=== PATIENT | male | born 1965 | race Caucasian/White ===

== ENCOUNTER 2020-12-24 15:21 | Emergency (ER) | payer OTHER, SELFPAY ==
[2020-12-24 15:41] VITALS: BP 196/113; PULSE 98; RESP 16; TEMP 36.1; O2SAT 98; BMI 29.3
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
[2020-12-24] MEDS: Diphth,Pertus(ACell),Tet Adult 0.5 ML SYRINGE IM (17:17)
[2020-12-24] MEDS: Silver Sulfadiazine 1 % Cream 20 GM TUBE 1 APPL TOPICAL (17:18)
[2020-12-24 17:42] LABS: Anion Gap 20 (12-20); Blood Urea Nitrogen 10 mg/dL (9-16); Calcium 9.6 mg/dL (8.4-10.2); Carbon Dioxide 25 mmol/L (22-29); Chloride 102 mmol/L (96-108); Creatinine Clr Calc Pharmacy 100.8; Estimated Glomerular Filt Rate > 60; Glucose Random 93 mg/dL (60-115); Potassium 4.7 mmol/L (3.3-5.1); Sodium 142 mmol/L (135-145)
[2020-12-24 18:00] VITALS: BP 196/120; PULSE 76; RESP 16; O2SAT 96
[2020-12-24 18:15] VITALS: BP 196/120; PULSE 79
[2020-12-24] MEDS: lisinopriL 10 MG TABLET PO (18:15)
== END 2020-12-24 18:30 | disposition home or self-care (01) ==
PROVIDERS: Physician Assistant Medical; Emergency Provider Emergency Medicine
DX: T24.231A Burn of second degree of right lower leg, initial encounter (principal); T21.22XA Burn of second degree of abdominal wall, initial encounter; T31.0 Burns involving less than 10% of body surface; X17.XXXA Contact with hot engines, machinery and tools, initial encounter; I10 Essential (primary) hypertension; Y93.H2 Activity, gardening and landscaping; Y92.096 Garden or yard of other non-institutional residence as the place of occurrence of the external cause; Y99.0 Civilian activity done for income or pay
CPT/HCPCS: 36415; 80048; 90471; 90715; 99283; 99284

== ENCOUNTER 2020-12-30 11:31 | Emergency (ER) | payer OTHER, MEDICAID, SELFPAY ==
[2020-12-30 11:34] VITALS: BP 183/104; PULSE 97; RESP 16; TEMP 37.3; O2SAT 98; BMI 29.9
[2020-12-30 12:50] VITALS: BP 146/89; PULSE 97; RESP 16; O2SAT 95
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
[2020-12-30] MEDS: cephALEXin 500 MG CAPSULE PO (12:56)
== END 2020-12-30 13:20 | disposition home or self-care (01) ==
PROVIDERS: Emergency Provider Emergency Medicine Emergency Medical Services
DX: Z04.2 Encounter for examination and observation following work accident (principal); Z48.00 Encounter for change or removal of nonsurgical wound dressing; T21.22XD Burn of second degree of abdominal wall, subsequent encounter; X08.8XXD Exposure to other specified smoke, fire and flames, subsequent encounter; I10 Essential (primary) hypertension
CPT/HCPCS: 99283; 99284

== ENCOUNTER 2021-04-04 05:47 | Emergency (ER) | payer OTHER, MEDICAID, SELFPAY ==
--- NOTE | ~2021-04-04 | XR_ITS ---
EXAMINATION: XR KNEE, RIGHT CLINICAL INFORMATION: Fall, pain COMPARISON: None TECHNIQUE: Four views of the right knee. FINDINGS: No radiographic evidence of acute fracture subluxation. Minimal degenerative marginal osteophytes of the patellofemoral and lateral compartments. Medial compartment narrowing. Small joint effusion. 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
[2021-04-04 05:57] VITALS: BP 159/98; PULSE 86; RESP 16; TEMP 36.6; O2SAT 99; BMI 30.6
[2021-04-04 06:19] VITALS: BP 153/91; PULSE 86; RESP 16; TEMP 36.9; O2SAT 98
--- NOTE | 2021-04-04 06:50 | ED.FALL ---
HPI - Fall General Chief Complaint: Fall Stated Complaint: knee injury/work inj Time Seen by Provider: 04/04/21 06:25 Source: patient Mode of arrival: ambulatory Limitations: no limitations History of Present Illness HPI Narrative: Patient comes to the emergency room complaining of right-sided knee pain. Patient states he works in [employer], patient was at work, slipped, fell on his butt but believes that his knee bent awkwardly. Patient states that since yesterday he has been able to bear weight, his whole knee hurts but is able to flex extend and bear weight. Patient states he has not taking any pain medication since this happened. Patient denies hitting his head, no loss of consciousness, not on blood thinners Related Data Previous Rx's Medication Instructions Recorded lisinopril 10 mg tablet 10 mg PO DAILY #30 tab 12/24/20 silver sulfadiazine 1 % topical 1 appl TOPICAL DAILY #50 g 12/24/20 cream (Silvadene) cephalexin 500 mg capsule 500 mg PO QID 7 Days #28 cap 12/30/20 lisinopril 10 mg tablet 10 mg PO DAILY #90 tab 04/04/21 Allergies Allergy/AdvReac Type Severity Reaction Status Date / Time No Known Allergies Allergy Unverified 12/30/20 11:42 [No Known Allergies*] Review of Systems Review of Systems: Constitutional : No Weight loss, No Fever, No Chills, No Night Sweats, No Fatigue, No Malaise ENT/Mouth : No Hearing loss, No Ear Pain, No Nasal Congestion, No Sinus Pain, No Hoarseness, No sore throat, No Rhinorrhea, No Swallowing Difficulty Eyes: No Eye Pain, No Swelling, No Redness, No Foreign Body, No Discharge, No Vision Changes Cardiovascular : No Chest Pain, No SOB, No Dyspnea on Exertion, No Orthopnea, No Edema, No Palpitations Respiratory : No Cough, No Sputum, No Wheezing, No Smoke Exposure, No Dyspnea Gastrointestinal : No Nausea, No Vomiting, No Diarrhea, No Constipation, No abdominal Pain, No Hematochezia, No Melena Genitourinary : no irregular bleeding, No Dysuria, No Urinary Frequency, No Hematuria, No Urinary Incontinence, No Urgency, No Flank Pain, No Urinary Flow Changes, No Hesitancy Musculoskeletal : Complaining of any pain, No Myalgias, No Joint Swelling Skin : No Skin Lesions, No rash Neuro : No Weakness, No Numbness, No Paresthesias, No Loss of Consciousness, No Dizziness, No Headache Psych : No Anxiety/Panic, No Depression, No SI/HI/AH/VH, No Social Issues, Heme/Lymph: No Bruising, No Bleeding,No Lymphadenopathy Endocrine : No Polyuria, No Polydipsia, No Temperature Intolerance [facility] Social History Social History Patient Tobacco Use Status: Never used Tobacco Advance Directives: No Advance Directives Information Provided: Yes Physical Exam Vital Signs: Vital Signs: Last Vital Signs Temp 98.5 F 04/04/21 06:19 Pulse 86 04/04/21 06:19 Resp 16 04/04/21 06:19 BP 153/91 H 04/04/21 06:19 Pulse Ox 98 04/04/21 06:19 Body Mass Index 30.6 Const: Other: Appearance: Alert. Oriented X3. No acute distress. Eyes: Pupils equal, round and reactive to light. ENT: Pharynx normal. Neck: Normal inspection. Neck supple. No lymph nodes noted. No crepitus CVS: Normal heart rate and rhythm. Pulses normal. Normal S1 and S2 Respiratory: No respiratory distress. Breath sounds normal. No Wheezing. No rales Abdomen: Soft and nontender. No rigidity. No distention. good BS x4 Skin: Skin warm and dry. Normal skin color. Normal skin turgor. Extremities: No lower extremity edema. Right knee is mildly swollen, no obvious effusion. No discoloration, no skin injury. Joint is not erythematous, or warm to touch, patient is able to flex and extend the knee, able to bear weight. Negative anterior and posterior drawer test, negative Piper's test, negative Lachmans test, negative valgus/varus test Neuro: Oriented X 3. No motor deficit. No sensory deficit. Moving all extermities. No slurred speech. Course Course Course Narrative: I discussed the physical exam with the patient, patient likely has a contusion rather than a meniscal/ligamentous injury. Patient will follow-up with a new primary care physician. Patient states that he ran out of his lisinopril, takes 10 mg daily. Patient requesting a refill. Patient does not have a primary care physician MDM - Fall Imaging Data Knee x-ray: Radiologist's impression: No radiographic evidence of acute fracture subluxation. Minimal degenerative marginal osteophytes of the patellofemoral and lateral compartments. Medial compartment narrowing. Small joint effusion.? 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 Discharge Plan Discharge Clinical Impression: Acute knee pain Qualifiers: Laterality: right Qualified Code(s): M25.561 - Pain in right knee Patient Disposition: Home, Self-Care Instructions: Knee Pain (ED), Patellofemoral Pain Syndrome Exercises (ED) Additional Instructions: Please follow-up with your primary care physician tomorrow. If you have any worsening or new symptoms, please return to the emergency room or call 911 Prescriptions: New lisinopril 10 mg tablet 10 mg PO DAILY Qty: 90 RF: 1 No Action cephalexin 500 mg capsule 500 mg PO QID 7 Days Qty: 28 RF: 0 lisinopril 10 mg tablet 10 mg PO DAILY Qty: 30 RF: 0 silver sulfadiazine [Silvadene] 1 % cream 1 appl topical DAILY Qty: 50 RF: 0
== END 2021-04-04 08:26 | disposition home or self-care (01) ==
PROVIDERS: Emergency Provider Emergency Medicine
DX: M25.561 Pain in right knee (principal); Z79.899 Other long term (current) drug therapy
CPT/HCPCS: 73562; 99283

== ENCOUNTER 2021-10-10 15:55 | Emergency (ER) | payer MEDICAID, SELFPAY ==
--- NOTE | ~2021-10-10 | CT_ITS ---
EXAMINATION: CT head/brain wo con, CT cervical spine wo con INDICATION INFORMATION: Reason for Exam fall, ETOH COMPARISON: Trauma TECHNIQUE: Separate noncontrast CT examinations of the head and cervical spine were performed. Coronal and sagittal images were created for each examination at the technologist workstation. This CT examination was performed using dose optimization techniques as appropriate, variously including the following: *Automated exposure control *Adjustment of mA and/or kV according to patient size (this includes techniques or standardized protocols for targeted exams where dose is matched to indication/reason for exam; i.e. extremities or head) *Use of iterative reconstruction technique DLP: 941.26 mGy-cm FINDINGS: Head: No acute osseous or soft tissue abnormality. The mastoid air cells and visualized portions of the paranasal sinuses are well aerated. There is no evidence of acute intracranial hemorrhage or territorial infarction. No abnormal mass effect or midline shift is seen. Frank to white matter differentiation is well preserved. No extra-axial fluid collections are identified. No hydrocephalus. Cervical spine: There is no evidence of acute cervical spine fracture. Vertebral bodies remain normal in height. Alignment is maintained. Multilevel loss of disc space height. No pre- or paravertebral soft tissue abnormality is identified. Visualized portions of the lung apices are unremarkable. The thyroid gland is unremarkable. CT/CT cervical spine wo con IMPRESSION: 1. No acute intracranial abnormality. 2. No cervical spine fracture or traumatic malalignment.
--- NOTE | ~2021-10-10 | CT_ITS ---
EXAMINATION: CT head/brain wo con, CT cervical spine wo con INDICATION INFORMATION: Reason for Exam fall, ETOH COMPARISON: Trauma TECHNIQUE: Separate noncontrast CT examinations of the head and cervical spine were performed. Coronal and sagittal images were created for each examination at the technologist workstation. This CT examination was performed using dose optimization techniques as appropriate, variously including the following: *Automated exposure control *Adjustment of mA and/or kV according to patient size (this includes techniques or standardized protocols for targeted exams where dose is matched to indication/reason for exam; i.e. extremities or head) *Use of iterative reconstruction technique DLP: 941.26 mGy-cm FINDINGS: Head: No acute osseous or soft tissue abnormality. The mastoid air cells and visualized portions of the paranasal sinuses are well aerated. There is no evidence of acute intracranial hemorrhage or territorial infarction. No abnormal mass effect or midline shift is seen. Frank to white matter differentiation is well preserved. No extra-axial fluid collections are identified. No hydrocephalus. Cervical spine: There is no evidence of acute cervical spine fracture. Vertebral bodies remain normal in height. Alignment is maintained. Multilevel loss of disc space height. No pre- or paravertebral soft tissue abnormality is identified. Visualized portions of the lung apices are unremarkable. The thyroid gland is unremarkable. CT/CT head/brain wo con IMPRESSION: 1. No acute intracranial abnormality. 2. No cervical spine fracture or traumatic malalignment.
[2021-10-10 16:15] VITALS: BP 138/91; BP 150/99; PULSE 89; PULSE 99; RESP 18; TEMP 36.6; O2SAT 97; O2SAT 99; BMI 32.2
--- NOTE | 2021-10-10 16:18 | ED_ITS ---
HPI - Fall General Chief Complaint: ETOH/Substance Use Stated Complaint: trip and fall, etoh Time Seen by Provider: 10/10/21 16:16 Source: patient Mode of arrival: EMS Limitations: no limitations History of Present Illness HPI Narrative: Patient is a 56-year-old male being evaluated in the emergency department after a fall. Patient was found by his neighbors to be lying on the ground outside. Patient endorses having multiple concerns today including beer and shots. Upon getting home he slipped outside on a deck, was found lying on his left side in the snow. Upon EMS arrival he had no complaints. Unknown whether LOC occurred. Patient has abrasions to left side of face and left hand. He currently denies headache, neck pain, numbness or tingling of the arms or the legs, extremity pain, chest pain, palpitations, shortness of breath, difficulty breathing. MD complaint: fall Onset (ago): hour(s) Fall from: standing Fall witnessed: no Place fall occurred: street Loss of consciousness: unsure Context: alcohol use Related Data Previous Rx's Medication Instructions Recorded lisinopril 10 mg tablet 10 mg PO DAILY #30 tab 12/24/20 silver sulfadiazine 1 % topical 1 appl TOPICAL DAILY #50 g 12/24/20 cream (Silvadene) cephalexin 500 mg capsule 500 mg PO QID 7 Days #28 cap 12/30/20 lisinopril 10 mg tablet 10 mg PO DAILY #90 tab 04/04/21 Allergies Allergy/AdvReac Type Severity Reaction Status Date / Time No Known Allergies Allergy Unverified 12/30/20 11:42 [No Known Allergies*] Review of Systems Review of Systems: Constitutional: No weight loss, fever, chills, weakness or fatigue. HEENT: No visual loss, blurred vision, double vision or yellow sclera. No hearing loss, sneezing, congestion, runny nose or sore throat. Skin: No rash or itching. Cardiovascular: No chest pain, chest pressure or chest discomfort. No palpitations or pedal edema. Respiratory: No shortness of breath, cough or sputum production. Gastrointestinal: No anorexia, nausea, vomiting or diarrhea. No abdominal pain or blood in stool. Genitourinary: No burning micturition. No urinary frequency or incontinence. Neurologic: No headache, dizziness, syncope, unilateral weakness, ataxia, numbness or tingling in the extremities. No change in bowel or bladder control. Musculoskeletal: No muscle pain, back pain, joint pain or stiffness. Hematologic: No bleeding or bruising. Lymphatics: No enlarged lymph nodes. Psychiatric:No depression or anxiety. Endocrine: No polyuria or polydipsia. [facility] Social History Social History Alcohol intake: current Alcohol intake frequency: 0-2 drinks per day Alcohol type: beer and hard liquor Patient Tobacco Use Status: Never used Tobacco Use of substances other than those prescribed or required for medical reasons: No Advance Directives: No Advance Directives Information Provided: No Physical Exam Vital Signs: Vital Signs: Last Vital Signs Temp 98 F 10/10/21 16:15 Pulse 89 10/10/21 16:15 Resp 18 10/10/21 16:15 BP 138/91 H 10/10/21 16:15 Pulse Ox 97 10/10/21 16:15 BMI result Body Mass Index 32.2 Vital signs have been reviewed as normal and appeared to be correct. Blood pressure normal.? Heart rate normal.? Respiration rate normal. Temperature norm al.? Oxygen saturation normal. Appearance: Alert.?Oriented to person, place and time. Clinically appears intoxicated Eyes: Pupils equal, round and reactive to light.? Horizontal nystagmus with leftward gaze ENT: Pharynx normal.?? Neck: Normal inspection.? Neck supple.??No palpable midline tenderness, step- offs, deformities Back: No palpable midline tenderness, step-offs, deformities CVS: Heart sounds normal. Normal heart rate and rhythm.? Pulses normal.?? Respiratory: No respiratory distress.? Lung sounds clear to auscultation bilaterally?? Abdomen: Soft and non-tender. Normoactive bowel sounds. No pulsatile mass.?? Skin: Skin warm and dry.? Normal skin color.? Normal skin turgor.??Abrasion to left temporal region, abrasions over left Dorsal hand Extremities: No lower extremity edema.? No calf ttp. Full AROM to bilateral arms and legs Neuro: Moves all extremities spontaneously. Sensation intact bilaterally. CN II- XII intact. No focal neuro deficits. Nonambulatory at the time of initial exam Course Course Course Narrative: Patient is a 56-year-old male being evaluated after a fall while under the influence of alcohol. Will obtain CT of the head and neck to exclude ICH, SAH, fracture, dislocation. Will obtain basic labs including ethanol level drug of abuse screen. He is hemodynamically stable, afebrile, no tachycardia, no hypoxia, tachypnea or depressed respiratory drive. He is slow to respond to questions and speech is slurred but is responding appropriately. Maintaining airway managing secretions. Reevaluation(s) Reevaluation #1: Alcohol level was 364, urinalysis positive for cocaine. CBC, BMP are unremarkable. CT head and CT cervical spine normal, negative for acute fractures, dislocation. Hard cervical spine collar cleared. Patient attempted to call a friend for a ride home. Clinically, remains intoxicated at this time. Time: 18:30 Reevaluation #2: Patient ambulating with slow steady gait. Moving all extremities appropriately. Contacted his brother for a ride home, who presented to the emergency department. Patient's brother is agreeable to take him home at this time. Time: 19:26 MDM - Fall Medical Records Attestation: I reviewed the patient's medical records. Lab Data Result diagrams: 10/10/21 16:30 10/10/21 16:30 Labs: Lab Results 10/10/21 10/10/21 10/10/21 Range/Units 16:30 16:30 16:30 WBC 5.2 (4.8-10.8) X10*3/uL RBC 4.44 L (4.60-5.80) X10*6/uL Hgb 16.4 (14.0-18.0) g/dl Hct 47.1 (42.0-52.0) % MCV 106.1 H (80.0-98.0) fL MCH 36.9 H (27.0-33.0) pg MCHC 34.8 (31.0-36.0) g/dl RDW 13.2 (11.0-16.0) % Plt Count 222 (160-400) X10*3/uL MPV 8.5 L (9.4-12.4) fL Immature Gran % (Auto) 0.8 H (0.0-0.4) % Neut % (Auto) 63.2 (45-73) % Lymph % (Auto) 23.7 (20-40) % [place] % (Auto) 8.9 (2-11) % Eos % (Auto) 1.7 (0-4) % Baso % (Auto) 1.7 (0-2) % Lymph # (Auto) 1.2 (1.2-4.9) X10*3/uL [place] # (Auto) 0.5 (0.1-1.2) X10*3/uL Eos # (Auto) 0.1 (0.0-0.4) X10*3/uL Baso # (Auto) 0.1 (0.0-0.2) X10*3/uL Abs Immat Gran (auto) 0.04 H (0.00-0.03) X10*3/uL Absolute Neuts (auto) 3.3 (2.0-8.3) x10*3/uL Absolute Nucleated RBC 0.000 (0.0-0.012) X10*3/uL Nucleated RBC % (auto) 0.0 (0.0-0.2) /100WBC Sodium 136 (135-145) mmol/L Potassium 4.9 (3.3-5.1) mmol/L Chloride 98 (96-108) mmol/L Carbon Dioxide 29 (22-29) mmol/L Anion Gap 14 (12-20) BUN 12 (9-16) mg/dL Creatinine 1.15 (0.5-1.4) mg/dL Estim Creat Clear Calc 97.6 Estimated GFR > 60 Random Glucose 106 (60-115) mg/dL Calcium 9.8 (8.4-10.2) mg/dL Urine Opiates Screen (Not Detect) Urine Fentanyl Screen (Not Detect) Ur Barbiturates Screen (Not Detect) Ur Phencyclidine Scrn (Not Detect) Ur Amphetamines Screen (Not Detect) U Benzodiazepines Scrn (Not Detect) Urine Cocaine Screen (Not Detect) U Marijuana (THC) Screen (Not Detect) Ethyl Alcohol 364 H* mg/dL 10/10/21 Range/Units 18:18 WBC (4.8-10.8) X10*3/uL RBC (4.60-5.80) X10*6/uL Hgb (14.0-18.0) g/dl Hct (42.0-52.0) % MCV (80.0-98.0) fL MCH (27.0-33.0) pg MCHC (31.0-36.0) g/dl RDW (11.0-16.0) % Plt Count (160-400) X10*3/uL MPV (9.4-12.4) fL Immature Gran % (Auto) (0.0-0.4) % Neut % (Auto) (45-73) % Lymph % (Auto) (20-40) % [place] % (Auto) (2-11) % Eos % (Auto) (0-4) % Baso % (Auto) (0-2) % Lymph # (Auto) (1.2-4.9) X10*3/uL [place] # (Auto) (0.1-1.2) X10*3/uL Eos # (Auto) (0.0-0.4) X10*3/uL Baso # (Auto) (0.0-0.2) X10*3/uL Abs Immat Gran (auto) (0.00-0.03) X10*3/uL Absolute Neuts (auto) (2.0-8.3) x10*3/uL Absolute Nucleated RBC (0.0-0.012) X10*3/uL Nucleated RBC % (auto) (0.0-0.2) /100WBC Sodium (135-145) mmol/L Potassium (3.3-5.1) mmol/L Chloride (96-108) mmol/L Carbon Dioxide (22-29) mmol/L Anion Gap (12-20) BUN (9-16) mg/dL Creatinine (0.5-1.4) mg/dL Estim Creat Clear Calc Estimated GFR Random Glucose (60-115) mg/dL Calcium (8.4-10.2) mg/dL Urine Opiates Screen Not Detected (Not Detect) Urine Fentanyl Screen Not Detected (Not Detect) Ur Barbiturates Screen Not Detected (Not Detect) Ur Phencyclidine Scrn Not Detected (Not Detect) Ur Amphetamines Screen Not Detected (Not Detect) U Benzodiazepines Scrn Not Detected (Not Detect) Urine Cocaine Screen POSITIVE H (Not Detect) U Marijuana (THC) Screen Not Detected (Not Detect) Ethyl Alcohol mg/dL Imaging Data CT scan - head: Radiologist's impression: CT/CT cervical spine wo con IMPRESSION: ? 1.? No acute intracranial abnormality. ? 2.? No cervical spine fracture or traumatic malalignment. Discharge Plan Discharge Clinical Impression: Alcoholic intoxication, Fall Patient Disposition: Home, Self-Care Instructions: Abuse of Alcohol (ED), Fall Prevention (ED) Additional Instructions: You were evaluated in the emergency department today after a fall. Please refrain from excessive alcohol consumption, this may be due to increased risk for falls in the future. Future falls put you at risk for head injury, bleeding, and life-threatening injuries. You may return to the emergency department for any new or worsening symptoms or concerns Prescriptions: No Action cephalexin 500 mg capsule 500 mg PO QID 7 Days Qty: 28 0RF lisinopril 10 mg tablet 10 mg PO DAILY Qty: 30 0RF silver sulfadiazine [Silvadene] 1 % cream 1 appl topical DAILY Qty: 50 0RF Rx Instructions: apply a 1.5 mm thickness lisinopril 10 mg tablet 10 mg PO DAILY Qty: 90 1RF Interventions: ED Discharge Assessment Last Done: 10/10/21 19:44 Discharge Date/Time: 10/10/21 19:45
[2021-10-10 16:35] LABS: MANUAL DIFF FLAG NO
[2021-10-10 16:37] LABS: Basophils Absolute Auto 0.1 X10*3/uL (0.0-0.2); Basophils Percent Auto 1.7 % (0-2); Eosinophils Absolute Auto 0.1 X10*3/uL (0.0-0.4); Eosinophils Percent Auto 1.7 % (0-4); Hematocrit 47.1 % (42.0-52.0); Hemoglobin 16.4 g/dl (14.0-18.0); Imm Gran Abs Auto 0.04 X10*3/uL (0.00-0.03); Imm Gran Pct Auto 0.8 % (0.0-0.4); Lymphocytes Absolute Auto 1.2 X10*3/uL (1.2-4.9); Lymphocytes Percent Auto 23.7 % (20-40); Mean Corpuscular HGB Conc 34.8 g/dl (31.0-36.0); Mean Corpuscular Hemoglobin 36.9 pg (27.0-33.0); Mean Corpuscular Volume 106.1 fL (80.0-98.0); Mean Platelet Volume 8.5 fL (9.4-12.4); Monocytes Absolute Auto 0.5 X10*3/uL (0.1-1.2); Monocytes Percent Auto 8.9 % (2-11); Neutrophils Absolute Auto 3.3 x10*3/uL (2.0-8.3); Neutrophils Percent Auto 63.2 % (45-73); Platelet Count 222 X10*3/uL (160-400); Red Blood Count 4.44 X10*6/uL (4.60-5.80); Red Cell Distribution Width 13.2 % (11.0-16.0); White Blood Count 5.2 X10*3/uL (4.8-10.8)
[2021-10-10 16:53] LABS: Ethanol 364 mg/dL
[2021-10-10 16:55] LABS: Anion Gap 14 (12-20); Blood Urea Nitrogen 12 mg/dL (9-16); Calcium 9.8 mg/dL (8.4-10.2); Carbon Dioxide 29 mmol/L (22-29); Chloride 98 mmol/L (96-108); Creatinine Clr Calc Pharmacy 97.6; Estimated Glomerular Filt Rate > 60; Glucose Random 106 mg/dL (60-115); Potassium 4.9 mmol/L (3.3-5.1); Sodium 136 mmol/L (135-145)
[2021-10-10 18:44] LABS: Amphetamine Screen Urine Not Detected (Not Detect); Barbiturates, Urine Not Detected (Not Detect); Benzodiazepines Screen Urine Not Detected (Not Detect); Cannabinoid Screen Urine Not Detected (Not Detect); Cocaine Screen Urine POSITIVE (Not Detect); Fentanyl, urine Not Detected (Not Detect); Opiate Screen Urine Not Detected (Not Detect); Phencyclidine Screen Urine Not Detected (Not Detect)
--- NOTE | 2021-10-10 19:12 | PC.NURSE ---
Patient is getting a sober ride home from his brother.
== END 2021-10-10 19:45 | disposition home or self-care (01) ==
PROVIDERS: Nurse Practitioner Family; Emergency Provider Emergency Medicine Emergency Medical Services
DX: F10.129 Alcohol abuse with intoxication, unspecified (principal); Y90.8 Blood alcohol level of 240 mg/100 ml or more; Z91.81 History of falling
CPT/HCPCS: 36415; 70450; 72125; 80048; 80307; 82077; 85025; 99284; 99285

== ENCOUNTER 2021-10-13 07:48 | Emergency (ER) | payer MEDICAID, SELFPAY ==
--- NOTE | ~2021-10-13 | CT_ITS ---
EXAMINATION: CT ABDOMEN AND PELVIS WITH CONTRAST CLINICAL INFORMATION: Multiple rib fractures. Rule out liver/splenic hematoma. COMPARISON: Correlation CT chest 10/13/2021 TECHNIQUE: Multidetector volumetric images were obtained from the superior aspect of the liver through the pubic symphysis following administration 85 mL of Omnipaque 350 intravenous contrast. Sagittal and coronal reformatted images were obtained on the technologist's workstation. This CT examination was performed using dose optimization techniques as appropriate, variously including the following: *Automated exposure control *Adjustment of mA and/or kV according to patient size (this includes techniques or standardized protocols for targeted exams where dose is matched to indication/reason for exam; i.e. extremities or head) *Use of iterative reconstruction technique DLP: 796 mGy-cm FINDINGS: LUNG BASES: The visualized lung bases are clear.. LIVER, GALLBLADDER, AND BILIARY TREE: Enlarged liver right liver spanning 18.9 cm. Low-attenuation liver suggesting hepatic steatosis. No focal lesion seen. No findings to suggest laceration. No perihepatic hematoma/fluid seen. The gallbladder is unremarkable with no evidence of radiopaque gallstones, gallbladder wall thickening, or obvious pericholecystic inflammatory changes. PANCREAS: Unremarkable. No acute inflammatory changes. SPLEEN: Normal enhancement. No laceration is identified. No perisplenic fluid or hematoma seen. ADRENAL GLANDS: Unremarkable. KIDNEYS AND URETERS: The kidneys are normal in size, shape, and attenuation. No hydronephrosis, hydroureter, or calculi seen. Minimal perinephric stranding. Small subcentimeter right renal lesion, too small to characterize, statistically probably cysts.. BLADDER: Unremarkable. GASTROINTESTINAL TRACT: The small and large bowel are unremarkable. Stomach is partially distended. The appendix is unremarkable. No free fluid. No free air. ABDOMINAL WALL: Small umbilical hernia containing fat. Small left inguinal hernia containing fat. LYMPH NODES: No pathologically enlarged lymph nodes are seen. VASCULAR: Normal caliber aorta. Hepatic and portal veins are enhancing. PELVIC VISCERA: Prostate measures 4.7 cm transverse. Small calcifications. Seminal vesicles appear unremarkable. OSSEOUS STRUCTURES: Mild spondylosis in the visualized spine. No evidence of acute fracture. See chest CT report for rib fracture findings. CT/CT abdomen pelvis w con IMPRESSION: 1. Hepatomegaly. Findings suggest hepatic steatosis. 2. No CT findings to suggest hepatic or splenic injury, or evidence of subjacent fluid or hematoma. 3. Additional findings and details as above. Fleischner guidelines were followed.
--- NOTE | ~2021-10-13 | CT_ITS ---
EXAMINATION: CT CHEST WITHOUT CONTRAST CLINICAL INFORMATION: Severe left chest pain. Status post fall. COMPARISON: None TECHNIQUE: Multidetector volumetric CT imaging of the chest was done. Axial MIP volume rendering provided. Sagittal and coronal reformatted images were obtained. This CT examination was performed using dose optimization techniques as appropriate, variously including the following: *Automated exposure control *Adjustment of mA and/or kV according to patient size (this includes techniques or standardized protocols for targeted exams where dose is matched to indication/reason for exam; i.e. extremities or head) *Use of iterative reconstruction technique DLP: 542 mGy-cm FINDINGS: Mediastinum: No abnormal mediastinal fluid collections. Normal caliber and contour of the thoracic aorta. Normal caliber of the main and central pulmonary arteries. Partially visualized minimal scattered coronary artery calcific atherosclerosis. Normal heart size. No pericardial effusions. No new sternal lymphadenopathy. Lungs and pleura: Minimal biapical reticular nodular pleural parenchymal scarring of the lungs. No pulmonary consolidation. No pleural effusions. No pneumothoraces. CHEST WALL: No axillary lymphadenopathy. Mild bilateral gynecomastia. Mild left pectoral subcutaneous soft tissue reticulation is noted and is suspicious for acute soft tissue inflammatory changes (series 3 image 25. Osseous structures: Minimally displaced fractures of the anterior segment of the left third through fifth ribs. Minimal multilevel anterior endplate osteophytosis of the thoracic spine. No thoracic vertebral body compression deformities. Intact sternum. No rib fractures identified. Insight visualized abdominal structures: Diffuse low density of the liver is present relative to the spleen suspicious for diffuse hepatic steatosis. The adrenal glands are normal in appearance. Liver is normal in size and capsular contour. Grossly normal appearance of the gallbladder. Normal appearance of the pancreas and spleen. Kidneys demonstrate no hydronephrosis or nephrolithiasis. CT/CT chest wo con IMPRESSION: *Minimally displaced fracture of the anterior segment of the left third through fifth ribs with mild adjacent left pectoral subcutaneous soft tissue inflammatory changes. No pleural effusions or pneumothoraces. *Mild bilateral gynecomastia. *Partially visualized minimal coronary artery calcific atherosclerosis. *Diffuse hepatic steatosis.
[2021-10-13 07:51] VITALS: BP 197/107; PULSE 94; RESP 16; TEMP 37.2; O2SAT 98; BMI 30.6
--- NOTE | 2021-10-13 08:07 | PC.NURSE ---
LS CTA bilaterally, pt reports pain on inspiration. Provider in to bedside for primary eval, plan for chest CT AND ekg at this time.
--- NOTE | 2021-10-13 08:10 | ECG_ITS ---
Test Reason : Chest pain Blood Pressure : / mmHG Vent. Rate : 082 BPM Atrial Rate : 082 BPM P-R Int : 184 ms QRS Dur : 104 ms QT Int : 372 ms P-R-T Axes : 034 013 024 degrees QTc Int : 434 ms Normal sinus rhythm Minimal voltage criteria for LVH, may be normal variant ( R in aVL ) Inferior infarct , age undetermined Cannot rule out Anterior infarct , age undetermined Abnormal ECG No previous ECGs available Referred By: Goldie Francisco Electronically Signed By:TUNDE YU MD
--- NOTE | 2021-10-13 08:18 | ED.GENADULT ---
HPI - General Adult General Chief complaint: General Medical Stated complaint: pain ribs on left side Time Seen by Provider: 10/13/21 08:10 Source: patient Mode of arrival: ambulatory Limitations: no limitations History of Present Illness HPI narrative: 56-year-old male came in for evaluation of left chest wall pain after a fall. 56-year-old male seen and evaluated 3 days ago in the emergency department after tripped and fell while intoxicated with alcohol, patient started having gradual onset of left-sided chest wall pain increased with breathing, nail radiation of the pain, patient do not feel dizzy or headache. No abdominal pain. No blood noted in the urine. Patient had CT head and neck which was unremarkable for any trauma. Patient also complaining of left upper extremity pain and tenderness. Related Data Previous Rx's Medication Instructions Recorded lisinopril 10 mg tablet 10 mg PO DAILY #30 tab 12/24/20 silver sulfadiazine 1 % topical 1 appl TOPICAL DAILY #50 g 12/24/20 cream (Silvadene) cephalexin 500 mg capsule 500 mg PO QID 7 Days #28 cap 12/30/20 lisinopril 10 mg tablet 10 mg PO DAILY #90 tab 04/04/21 oxycodone 5 mg tablet 5 mg PO Q8H PRN #10 tab 10/13/21 Allergies Allergy/AdvReac Type Severity Reaction Status Date / Time No Known Allergies Allergy Unverified 12/30/20 11:42 [No Known Allergies*] Review of Systems Review of Systems: All other systems are reviewed and are negative Constitutional: Reports as per HPI and Reports no additional constitutional complaints Eyes: Reports as per HPI and Reports no additional eye complaints Reports system reviewed and no additional complaints, except as documented Cardiovascular: Reports as per HPI and Reports no additional cardiovascular complaints Respiratory: Reports as per HPI and Reports no additional respiratory complaints Gastrointestinal: Reports as per HPI and Reports no additional gastrointestinal complaints Genitourinary: Reports no additional female genitourinary complaints Musculoskeletal: Reports no additional musculoskeletal complaints Skin/Breast: Reports system reviewed and no additional complaints, except as docu Psychiatric: Reports no additional psychiatric complaints Endocrine: Reports no additional endocrine complaints Hematologic/Lymphatic: Reports no additional hematologic/lymphatic complaints Allergic/Immunologic: Reports no additional allergic/immunologic complaints Reports system reviewed and no additional complaints, except as documented and Reports Abnormal speech present [facility] Past Medical History Medical History HTN (hypertension) Social History Social History Alcohol intake: current Alcohol intake frequency: a few times a week Alcohol type: beer and hard liquor Patient Tobacco Use Status: Never used Tobacco Smoked in Last 30 Days: No Use of substances other than those prescribed or required for medical reasons: No Advance Directives: No Advance Directives Information Provided: No Physical Exam ED Vital Signs: Vital Signs - 24 hr 10/13/21 07:51 Temperature 99 F Pulse Rate 94 Respiratory Rate 16 Blood Pressure 197/107 H Pulse Oximetry 98 BMI result Body Mass Index 30.6 Vital signs have been reviewed as appeared to be correct. Blood pressure elevated. Heart rate normal. Respiration rate normal. Temperature normal. Oxygen saturation normal. Appearance: Alert. Oriented X3. No acute distress. Head: Normal external exam. Normocephalic. Atraumatic. No Palomo signs noted. No raccoon eyes noted Eyes: PERRLA. EOMI. Conjunctiva and sclera normal. Eyelids normal. ENT: TM's Normal. Pharynx normal. Uvula midline. Moist mucous membranes. No trismus noted. No drooling noted. No muffled voice noted. Neck: Normal inspection. Neck supple. FROM. No adenopathy. Thyroid Normal. No meningeal signs. No neck mass noted. CVS: Normal heart rate and rhythm. Heart sound normal. No murmurs noted. Pulses normal throughout. Respiratory: No respiratory distress. Painless inspiration. Breath sounds normal. No wheezes/rales/rhonchi noted. Left-sided chest tenderness, no step-off, no deformity. No accessory muscle usage noted or decreased air movement noted. Abdomen: Soft and nontender. Bowel sounds normal in all 4 quadrants. No distention noted. No organomegaly noted. No visible injury noted. Back: No CVA tenderness. Full range of motion noted. Skin: Skin warm and dry. Normal skin color. Normal skin turgor. No rashes/lesions/lacerations noted. Extremities: No lower extremity edema. Extremities exhibit normal range of motion. Extremities nontender. No left elbow deformity or tenderness with full range of motion. Neuro: Oriented X 3. Cranial nerve exam: II-XII are grossly intact No motor deficit. No sensory deficit. Reflexes normal. Course Course Course Narrative: Assessment and plan. 56-year-old male had history of for 3 days ago while he was intoxicated, his initial evaluation did not reveal multiple rib fracture, patient presented today with left-sided chest wall pain, CT of the chest revealed 3 displaced rib fracture without lung injury, subsequently a normal CT of the abdomen was obtained to make sure there is no intra-abdominal organ injuries. Patient hemodynamically stable slight elevation of blood pressure but asymptomatic patient did not take his lisinopril home medication today. Will provide with 20 mg of lisinopril before discharge Findings were discussed with the patient stable to be discharged home since it is already 72 hours after trauma will need no further monitoring, patient was provided incentive spirometry was teaching to prevent atelectasis. Instructed to use Tylenol/ibuprofen alternatively for pain will prescribe few pills of oxycodone for severe pain. And avoid drinking alcohol. Medical Decision Making Medical Records Medical records reviewed: Yes I reviewed the patient's medical records. Lab Data Lab results reviewed: Yes I reviewed the patient's lab results. Result diagrams: 10/13/21 10:15 10/13/21 10:15 Labs: Lab Results 10/13/21 10/13/21 Range/Units 10:15 10:15 WBC 6.9 (4.8-10.8) X10*3/uL RBC 4.27 L (4.60-5.80) X10*6/uL Hgb 15.7 (14.0-18.0) g/dl Hct 45.6 (42.0-52.0) % MCV 106.8 H (80.0-98.0) fL MCH 36.8 H (27.0-33.0) pg MCHC 34.4 (31.0-36.0) g/dl RDW 13.1 (11.0-16.0) % Plt Count 196 (160-400) X10*3/uL MPV 8.6 L (9.4-12.4) fL Immature Gran % (Auto) 0.6 H (0.0-0.4) % Neut % (Auto) 71.9 (45-73) % Lymph % (Auto) 14.2 L (20-40) % [place] % (Auto) 11.0 (2-11) % Eos % (Auto) 1.3 (0-4) % Baso % (Auto) 1.0 (0-2) % Lymph # (Auto) 1.0 L (1.2-4.9) X10*3/uL [place] # (Auto) 0.8 (0.1-1.2) X10*3/uL Eos # (Auto) 0.1 (0.0-0.4) X10*3/uL Baso # (Auto) 0.1 (0.0-0.2) X10*3/uL Abs Immat Gran (auto) 0.04 H (0.00-0.03) X10*3/uL Absolute Neuts (auto) 5.0 (2.0-8.3) x10*3/uL Absolute Nucleated RBC 0.000 (0.0-0.012) X10*3/uL Nucleated RBC % (auto) 0.0 (0.0-0.2) /100WBC Sodium 135 (135-145) mmol/L Potassium 5.1 (3.3-5.1) mmol/L Chloride 98 (96-108) mmol/L Carbon Dioxide 28 (22-29) mmol/L Anion Gap 14 (12-20) BUN 11 (9-16) mg/dL Creatinine 0.91 (0.5-1.4) mg/dL Estim Creat Clear Calc 120.5 Estimated GFR > 60 Random Glucose 102 (60-115) mg/dL Calcium 10.5 H D (8.4-10.2) mg/dL Imaging Data CT abdomen pelvis with IV contrast: Attestation: I personally reviewed and interpreted this imaging study as follows: Radiologist's impression: 1. Hepatomegaly. Findings suggest hepatic steatosis. ? 2. No CT findings to suggest hepatic or splenic injury, or evidence of subjacent fluid or hematoma. ? 3. Additional findings and details as above.? ? Chest CT: Attestation: I personally reviewed and interpreted this imaging study as follows: Radiologist's impression: *Minimally displaced fracture of the anterior segment of the left third through fifth ribs with mild adjacent left pectoral subcutaneous soft tissue inflammatory changes. No pleural effusions or pneumothoraces. *Mild bilateral gynecomastia. *Partially visualized minimal coronary artery calcific atherosclerosis. *Diffuse hepatic steatosis. ECG Data Attestation: I personally reviewed and interpreted this ECG as follows: Interpretation: Normal sinus rhythm at 82 beats per minutes, normal axis deviation, LVH, nonspecific T-wave inversion and flattening. Discharge Plan Discharge Clinical Impression: Multiple fractures of ribs, Hypertension Patient Disposition: Home, Self-Care Instructions: How to Use an Incentive Spirometer (ED), Rib Fracture (ED) Additional Instructions: Use incentive spirometry 3 to 5 times a day as instructed to avoid lung collapse or infection. Prescriptions: New oxycodone 5 mg tablet 5 mg PO Q8H PRN (Reason: pain) Qty: 10 0RF No Action cephalexin 500 mg capsule 500 mg PO QID 7 Days Qty: 28 0RF lisinopril 10 mg tablet 10 mg PO DAILY Qty: 30 0RF silver sulfadiazine [Silvadene] 1 % cream 1 appl topical DAILY Qty: 50 0RF Rx Instructions: apply a 1.5 mm thickness lisinopril 10 mg tablet 10 mg PO DAILY Qty: 90 1RF Referrals: Physician,Unknown J [Primary Care Provider] - 2 days
[2021-10-13] MEDS: Ibuprofen 800 MG TABLET PO (09:35)
[2021-10-13 10:19] LABS: MANUAL DIFF FLAG NO
--- NOTE | 2021-10-13 10:21 | PC.NURSE ---
IV access obtained, labs drawn and sent. Results pending. Plan for CT with contrast.
[2021-10-13 10:26] LABS: Basophils Absolute Auto 0.1 X10*3/uL (0.0-0.2); Eosinophils Absolute Auto 0.1 X10*3/uL (0.0-0.4); Eosinophils Percent Auto 1.3 % (0-4); Hematocrit 45.6 % (42.0-52.0); Hemoglobin 15.7 g/dl (14.0-18.0); Imm Gran Abs Auto 0.04 X10*3/uL (0.00-0.03); Imm Gran Pct Auto 0.6 % (0.0-0.4); Lymphocytes Percent Auto 14.2 % (20-40); Mean Corpuscular HGB Conc 34.4 g/dl (31.0-36.0); Mean Corpuscular Hemoglobin 36.8 pg (27.0-33.0); Mean Corpuscular Volume 106.8 fL (80.0-98.0); Mean Platelet Volume 8.6 fL (9.4-12.4); Monocytes Absolute Auto 0.8 X10*3/uL (0.1-1.2); Neutrophils Percent Auto 71.9 % (45-73); Platelet Count 196 X10*3/uL (160-400); Red Blood Count 4.27 X10*6/uL (4.60-5.80); Red Cell Distribution Width 13.1 % (11.0-16.0); White Blood Count 6.9 X10*3/uL (4.8-10.8)
[2021-10-13 10:40] LABS: Anion Gap 14 (12-20); Blood Urea Nitrogen 11 mg/dL (9-16); Calcium 10.5 mg/dL (8.4-10.2); Carbon Dioxide 28 mmol/L (22-29); Chloride 98 mmol/L (96-108); Creatinine Clr Calc Pharmacy 120.5; Estimated Glomerular Filt Rate > 60; Glucose Random 102 mg/dL (60-115); Potassium 5.1 mmol/L (3.3-5.1); Sodium 135 mmol/L (135-145)
[2021-10-13] MEDS: iohexoL 350 MG/ML 100 ML INFUS..BTL IV (11:15)
[2021-10-13 11:54] VITALS: BP 187/104; PULSE 74; RESP 18; O2SAT 100
[2021-10-13] MEDS: lisinopriL 20 MG TABLET PO (12:09)
== END 2021-10-13 12:17 | disposition home or self-care (01) ==
PROVIDERS: Emergency Provider Emergency Medicine
DX: S22.43XA Multiple fractures of ribs, bilateral, initial encounter for closed fracture (principal); F10.129 Alcohol abuse with intoxication, unspecified; M54.6 Pain in thoracic spine; Y90.9 Presence of alcohol in blood, level not specified; I10 Essential (primary) hypertension; W01.0XXA Fall on same level from slipping, tripping and stumbling without subsequent striking against object, initial encounter; Y93.9 Activity, unspecified; Y92.9 Unspecified place or not applicable; Y99.9 Unspecified external cause status; Z79.899 Other long term (current) drug therapy
CPT/HCPCS: 36415; 71250; 74177; 80048; 85025; 93005; 99285; Q9967

== ENCOUNTER 2022-11-19 13:17 | Outpatient (REF) | payer SELFPAY ==
--- NOTE | ~2022-11-19 | CT_ITS ---
EXAMINATION: CT HEAD WITHOUT CONTRAST CLINICAL INFORMATION: Dizziness. COMPARISON: None. TECHNIQUE: Contiguous axial imaging was performed from the skullbase to vertex without intravenous administration of contrast. This CT examination was performed using dose optimization techniques as appropriate, variously including the following: *Automated exposure control *Adjustment of mA and/or kV according to patient size (this includes techniques or standardized protocols for targeted exams where dose is matched to indication/reason for exam; i.e. extremities or head) *Use of iterative reconstruction technique DLP: 906 mGy-cm. FINDINGS: There is no evidence of acute intracranial hemorrhage or territorial infarction. No abnormal mass effect or midline shift is seen. No extra-axial fluid collections are identified. Moderate generalized parenchymal volume loss is noted for patient age with concordant ex vacuo dilatation of the ventricles. No evidence of hydrocephalus. There is no abnormal attenuation within the brain parenchyma. The osseous structures and soft tissues are normal. The mastoid air cells are well aerated. There are scattered areas of mild mucosal thickening in the paranasal sinuses with a significant nasal septal deviation. Soft tissue density within the right external auditory canal is nonspecific but may be due to cerumen. The left external auditory canal is clear. CT/CT head/brain wo IV con IMPRESSION: No acute intracranial pathology. Moderate generalized parenchymal volume loss.
== END 2022-11-19 13:18 | disposition home or self-care (01) ==
LOC: HO.CT 13:17
PROVIDERS: PCP Internal Medicine; Visit Provider Internal Medicine
DX: R42 Dizziness and giddiness (principal)
CPT/HCPCS: 70450